=== PATIENT | female | born 1985 | race Caucasian/White ===

== ENCOUNTER 2017-08-09 17:35 | Emergency (ER) | payer SELFPAY ==
[2017-08-09 17:48] VITALS: TEMP 98.2
--- NOTE | 2017-08-09 18:42 | EDPHY ---
H & P Stated Complaint: REQUESTING PAP SMEAR, PG TEST AND ANTIBIOTICS Time Seen by Provider: 08/09/17 18:24 HPI/ROS: CHIEF COMPLAINT: Requesting test HISTORY OF PRESENT ILLNESS: 32-year-old female in the ER requesting test. She describes that for the past several weeks she has had abnormal vaginal bleeding, intermittent abdominal pain, none currently. She was told by the half-way nursing staff in [facility] that she may have an ectopic REVIEW OF SYSTEMS: A ten point review of systems was performed and is negative with the exception of the items mentioned in the HPI PAST MEDICAL & SURGICAL HISTORY: Tubal ligation. No known history of STD SOCIAL HISTORY: Currently living in a rehab facility PHYSICAL EXAM (Prior to examination, patient consented to physical exam, hands were washed and my usual and customary physical exam procedures followed) 1) GENERAL: Well-developed, well-nourished, alert and oriented. Appears to be in no acute distress. 2) HEAD: Normocephalic, atraumatic 3) HEENT: Pupils equal, round, reactive to light bilaterally. Sclera anicteric. 4) NECK: Full range of motion, no meningeal signs. 5) LUNGS: Clear auscultation bilaterally, no wheezes, no rhonchi, no retractions. 6) HEART: Regular rate and rhythm, no murmur, no heave, no gallop. 7) ABDOMEN: No guarding, no rebound, no focal tenderness, negative McBurney's, negative Martinez's, negative Rovsing's, negative peritoneal sign, unable to elicit abdominal pain 8) MUSCULOSKELETAL: Moving all extremities, no focal areas of tenderness, no obvious trauma. No peripheral edema or discoloration. 9) BACK: No CVA tenderness 10) SKIN: No rash, no petechiae. 11) Psychiatric: Patient is oriented X 3, there is no agitation. DIFFERENTIAL DIAGNOSIS: In no particular include but limited to dysfunctional uterine bleeding, ectopic , malignancy - Personal History LMP (Females 10-55): Over 28 Days Ago Current Tetanus Diphtheria and Acellular Pertussis (TDAP): Unsure - Medical/Surgical History Other PMH: C-SEC X2, TUBAL LIGATION - Social History Smoking Status: Current every day smoker Constitutional: Initial Vital Signs Temperature (C) 36.8 C 08/09/17 17:45 Heart Rate 96 08/09/17 17:45 Respiratory Rate 18 08/09/17 17:45 Blood Pressure 145/105 H 08/09/17 17:45 O2 Sat (%) 98 08/09/17 17:45 O2 Delivery Mode Room Air Allergies/Adverse Reactions: No Known Allergies Allergy (Unverified 08/09/17 17:44) Home Medications: Medication Instructions Recorded Cephalexin [Keflex] 500 mg PO TID 7 Days cap 08/09/17 Phenazopyridine HCl [Pyridium] 200 mg PO PC #10 tab 08/09/17 Medical Decision Making ED Course/Re-evaluation: The patient was re-evaluated with serial examinations. test was obtained which is negative. Doubt ectopic . Urinalysis obtained on this patient positive for for bacteriuria and pyuria. Urine cultured, started on antibiotics. She currently has vaginal bleeding. She is hemodynamically stable. I do not think that further diagnostic studies are indicated from the emergency department. There was a note about requesting a Pap smear. I had a discussion with the patient about services offered from the emergency department. I have provided her with Community information to discuss further health issues. - Data Points Laboratory Results: 08/09/17 19:10 Urine Color YELLOW Urine Appearance MODERATELY TURBID Urine pH 6.0 (5.0-7.5) Ur Specific [place] 1.008 (1.002-1.030) Urine Protein NEGATIVE (NEGATIVE) Urine Ketones NEGATIVE (NEGATIVE) Urine Blood NEGATIVE (NEGATIVE) Urine Nitrate NEGATIVE (NEGATIVE) Urine Bilirubin NEGATIVE (NEGATIVE) Urine Urobilinogen NEGATIVE EU EU (0.2-1.0) Ur Leukocyte Esterase 3+ H (NEGATIVE) Urine RBC 5-10 /hpf H /hpf (0-3) Urine WBC 15-25 /hpf H /hpf (0-3) Ur Epithelial Cells 3+ /lpf H /lpf (NONE-1+) Urine Bacteria TRACE /hpf H /hpf (NONE SEEN) Urine Glucose NEGATIVE (NEGATIVE) Departure - Departure Disposition: Home, Routine, Self-Care Clinical Impression: Dysfunctional uterine bleeding Urinary tract infection Qualifiers: Urinary tract infection type: acute cystitis Hematuria presence: with hematuria Qualified Code(s): N30.01 - Acute cystitis with hematuria Condition: Good Instructions: Dysfunctional Uterine Bleeding (ED), Urinary Tract Infection in Women (DC) Additional Instructions: Return to the ER immediately if you experience fevers/chills, flu like symptoms , inability to tolerate oral intake, nausea or vomiting, or any other symptoms that concern you. Referrals: [facility] [Clinic] - 2-3 days, call for appt. [facility],. [Clinic] - 2-3 days, call for appt. Prescriptions: Cephalexin [Keflex] 500 mg PO TID 7 Days cap Phenazopyridine HCl [Pyridium] 200 mg PO PC #10 tab
[2017-08-09 19:20] LABS: COLOR YELLOW; LEUKOCYTE ESTERASE,URINE 3+ (NEGATIVE); NITRITE,URINE NEGATIVE (NEGATIVE)
[2017-08-09 19:53] LABS: BACTERIA TRACE /hpf (NONE SEEN); WBC,URINE 15-25 /hpf (0-3)
[2017-08-09 20:35] VITALS: BP 154/89; PULSE 85; RESP 20; O2SAT 99
== END 2017-08-09 20:22 | disposition home or self-care (01) ==
DX: N93.8 Other specified abnormal uterine and vaginal bleeding (principal); N30.01 Acute cystitis with hematuria; F17.200 Nicotine dependence, unspecified, uncomplicated; B96.89 Other specified bacterial agents as the cause of diseases classified elsewhere

== ENCOUNTER 2017-08-14 21:15 | Emergency (ER) | payer SELFPAY ==
[2017-08-14 21:53] LABS: % IMMATURE GRANULYOCYTES 0.3 % (0.0-1.1); ABSOLUTE IMMATURE GRANULOCYTES 0.02 10^3/uL (0.00-0.10); ADD DIFF? NO; ADD MORPH? NO; ADD SCAN? NO; ATYPICAL LYMPHOCYTE FLAG 20 (0-99); FRAGMENT RBC FLAG 0 (0-99); HEMOGLOBIN 12.3 g/dL (12.6-16.3); LEFT SHIFT FLG 0 (0-99); LIPEMIA HEMOLYSIS FLAG 90 (0-99); MEAN CELL HEMOGLOBIN 32.5 pg (27.9-34.1); MEAN CELL HEMOGLOBIN CONCENTR. 34.2 g/dL (32.4-36.7); MEAN CELL VOLUME 95.2 fL (81.5-99.8); MEAN PLATELET VOLUME 9.8 fL (8.7-11.7); PLATELET CLUMPS FLAG 0 (0-99); PLATELET COUNT 243 10^3/uL (150-400); RED BLOOD CELL COUNT 3.78 10^6/uL (4.18-5.33); RED CELL DISTRIBUTION WIDTH 13.9 % (11.5-15.2)
[2017-08-14 22:20] LABS: ANION GAP 12 mEq/L (8-16); CALCIUM 9.6 mg/dL (8.5-10.4); CARBON DIOXIDE 23 mEq/l (22-31); CHLORIDE 102 mEq/L (97-110); CREATININE 0.8 mg/dL (0.6-1.0); ETHANOL SERUM < 10 mg/dL (0-10); GLOMERULAR FILTRATION RATE > 60; GLUCOSE 75 mg/dL (70-100); POTASSIUM 3.9 mEq/L (3.5-5.2); SALICYLATE < 1.0 mg/dL (2.0-20.0); SODIUM 137 mEq/L (134-144)
--- NOTE | 2017-08-14 22:29 | EDPHY ---
H & P Smoking Status: Current every day smoker Time Seen by Provider: 08/14/17 21:17 HPI/ROS: HPI Paranoid. M1 hold. 32-year-old female with [employer] police on an M1 hold. Patient was at her residential house facility. She was seen at a walk-in clinic by her bottle caser who reports that she has been acting erratic and nonsensical. Patient is also having paranoid delusions and thinks that her phone is tapped she has been talking to herself and she believes she was poisoned by exotic animals. She also reports having visual hallucinations and is noted to have a very labile mood. She was placed on an M1 hold for being gravely disabled. She is not suicidal. ROS: Constitutional: No fever, no chills. No weakness. Eyes: No discharge. No changes in vision. ENT: No sore throat. No nasal congestion or rhinorrhea. Respiratory: No cough. No shortness of breath. Cardiac: No chest pain, no palpitations. Gastrointestinal: No abdominal pain, no vomiting, no diarrhea. Genitourinary: No hematuria. No dysuria or increased frequency with urination. Musculoskeletal: No back pain. No neck pain. No myalgias or arthralgias. Skin: No rashes. Neurological: No headache. No focal weakness or altered sensation. Past medical history: Schizophrenia, mood disorder. Social history: Denies alcohol. Nonsmoker. Physical Exam: General Appearance: Alert, no distress. She is eating a turkey sandwich. This patient is responding to questions appropriately and in full sentences but then will start often a space and talk about things that are not present in reality. This patient appears well-hydrated and well-nourished. Eyes: Pupils equal and round no pallor or injection. No lid edema, erythema or injection. Respiratory: There are no retractions, lungs are clear to auscultation with good air movement bilaterally. Cardiovascular: Regular rate and rhythm. No murmur. Gastrointestinal: Abdomen is soft and nontender, no masses, bowel sounds normal. No focal tenderness at McBurney's point. No Martinez sign. Neurological: Motor sensory function is grossly intact. Cranial nerves are normal. Gait is normal. Skin: Warm and dry, no rashes. Musculoskeletal: Neck is supple and nontender. Extremities are symmetrical. All joints range without pain or impingement. Psychiatric: No agitation. No depression. Flat affect. As above. Database: EKG: Imaging: Procedures: Emergency department course: 10:30 p.m., appropriate blood work sent. [facility] has been notified and will evaluate the patient. She is medically cleared at this time. 11:00 p.m., patient awaiting behavioral health evaluation. Care turned over to Dr. Luke Villaseñor. Differential Diagnosis: The differential diagnosis on this patient includes but is not limited to schizophrenia, mood disorder, paranoid delusional state. This represents a partial list of diagnoses considered. These considerations are based on history , physical exam, past history, reassessment and diagnostic testing. (Malu Diamond) Constitutional: Initial Vital Signs Temperature (C) 36.9 C 08/14/17 21:38 Heart Rate 88 08/14/17 21:38 Respiratory Rate 16 08/14/17 21:38 Blood Pressure 142/91 H 08/14/17 21:38 O2 Sat (%) 98 08/14/17 21:38 O2 Delivery Mode Room Air Allergies/Adverse Reactions: No Known Allergies Allergy (Unverified 08/09/17 17:44) Home Medications: Medication Instructions Recorded Cephalexin [Keflex] 500 mg PO TID 7 Days cap 08/09/17 Phenazopyridine HCl [Pyridium] 200 mg PO PC #10 tab 08/09/17 Mirtazapine [Remeron] 08/14/17 Medical Decision Making ED Course/Re-evaluation: 0646: No acute events overnight patient is sleeping. Patient on M1 hold for paranoia, has history of schizophrenia, gravely disabled. (Luke Villaseñor) Other Provider: I assumed care of the patient at 7:00 a.m. pending psychiatric disposition. Update at 8:21 a.m.: The patient has been accepted for admission at [facility] by Dr. Lynne. I have filled out the EMTALA transfer form. (Shawn Shields) - Data Points Laboratory Results: Laboratory Results 08/14/17 21:30 08/14/17 21:30 Medications Given: Discontinued Medications Cephalexin HCl (Keflex) 500 mg PO EDNOW ONE PRN Reason: Protocol Stop: 08/15/17 03:14 Last Admin: 08/15/17 07:25 Dose: 500 mg Departure - Departure Disposition: Other Psych, Not [place] Clinical Impression: Schizophrenia, Urinary tract infection Condition: Good Instructions: Urinary Tract Infection in Women (DC) Additional Instructions: Please take all antibiotics as prescribed. Referrals: [facility] [Other] - As per Instructions
[2017-08-14 22:53] LABS: COLOR PALE YELLOW; LEUKOCYTE ESTERASE,URINE 1+ (NEGATIVE); NITRITE,URINE NEGATIVE (NEGATIVE)
[2017-08-14 22:58] LABS: BACTERIA TRACE /hpf (NONE SEEN)
[2017-08-15] MEDS ORDERED: CEPHALEXIN 500 MG CAP PO ONE ×2 (03:13→07:21)
[2017-08-15 07:43] VITALS: RESP 20; O2SAT 96
[2017-08-15 07:45] VITALS: BP 129/75; PULSE 83; TEMP 97.7
== END 2017-08-15 10:15 ==
LOC: EDUNIT#
DX: F20.9 Schizophrenia, unspecified (principal); N39.0 Urinary tract infection, site not specified; B96.89 Other specified bacterial agents as the cause of diseases classified elsewhere; F17.200 Nicotine dependence, unspecified, uncomplicated
CPT/HCPCS: 80305; G0480